=== PATIENT | male | born 1990 | race Caucasian/White ===

== ENCOUNTER 2020-02-11 15:00 | Emergency (ER) | payer OTHER ==
[2020-02-11 15:28] VITALS: BP 118/70; PULSE 85; TEMP 98; BMI 38.4
--- NOTE | 2020-02-11 15:36 | PDOC ---
Attending Attestation - Resident Resident Name: Pascual Isaacs - ED Attending Attestation I have performed the following: I have examined & evaluated the patient, The case was reviewed & discussed with the resident, I agree w/resident's findings & plan, Exceptions are as noted - HPI HPI: 29 yo M presents with laceration to L lateral ankle. He states he sustained the injury while working today, unknown sharp object in a bag. +Mild bleeding. - Physicial Exam PE: GENERAL: Awake, alert, and fully oriented, in no acute distress HEAD: No signs of trauma EXTREMITIES: +2.5cm linear laceration above the L lateral malleolus. Mild oozing blood. Tendon function intact. Remainder of extremities with normal range of motion, no edema. No clubbing or cyanosis. No cords, erythema, or tenderness NEUROLOGICAL: Cranial nerves II through XII grossly intact. Normal speech, normal gait. Motor and sensation intact SKIN: Warm, dry, normal turgor, no rashes. Laceration as above. - Medical Decision Making +Lower leg laceration, will place sutures to repair. Discharge - Discharge Information Problems reviewed: Yes Clinical Impression/Diagnosis: Laceration of ankle without complication Qualifiers: Encounter type: initial encounter Laterality: left Qualified Code(s): S91.012A - Laceration without foreign body, left ankle, initial encounter Condition: Improved Disposition: HOME - Follow up/Referral Referrals: Paulino Kamara [Primary Care Provider] - - Patient Discharge Instructions Patient Printed Discharge Instructions: DI for Laceration Repair Additional Instructions: You were seen today for a linear laceration to your left ankle. You were given Motrin for pain and a tetanus booster vaccine today. Your wound was closed with 1 simple running suture. It will need to be removed by a doctor or nurse after approximately 8-10 days. You may shower but do not submerge the area for the next 8-10 days. You can take over the counter Tylenol (Acetaminophen) and Advil/Motrin (Ibuprofen) as needed for pain. Take as directed on the package insert. Do not exceed the recommended dosage. Follow up with your primary care physician or return to the ED to have the suture removed. Go to the nearest emergency department if your condition worsens, you develop signs of an infection, or you feel like you need additional emergency evaluation. Print Language: WALLISIAN - Post Discharge Activity Work/Back to School Note: Back to Work
--- NOTE | 2020-02-11 15:47 | PDOC ---
History of Present Illness - General Chief Complaint: Laceration Stated Complaint: LEFT ANKLE LACERATION Time Seen by Provider: 02/11/20 15:22 History Source: Patient Exam Limitations: No Limitations - History of Present Illness Initial Comments: 29 y/o male presenting to [place] [facility] complaining of laceration to lateral aspect of the left ankle. Reports cutting his leg while moving a black bag of unknown contents while at work this morning at approx. 8AM. 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 The area bled a small amount. Pt sought emergent evaluation this afternoon at the urging of his boss. Denies numbness, tingling, difficulty walking or flexing the ankle. Past History - Medical History Allergies/Adverse Reactions: Allergies Allergy/AdvReac Type Severity Reaction Status Date / Time No Known Allergies Allergy Verified 02/11/20 15:21 Home Medications: Ambulatory Orders NK [No Known Home Medication] 02/11/20 COPD: No Other medical history: Pt denies past medical history - Psycho-Social/Smoking History Smoking History: Never smoked - Substance Abuse Hx (Audit-C & DAST Scrn) How often the patient has a drink containing alcohol: Never Score: In Men: 4 or > Positive; In Women: 3 or > Positive: 0 Screen Result (Pos requires Nsg. Audit-10AR): Negative In the last yr the pt used illegal drug/Rx for NonMed reason: No Score: Yes response is considered Positive: 0 Screen Result (Positive result requires Nsg. DAST-10): Negative Review of Systems - Review of Systems Able to Perform ROS?: Yes Comments:: 10 point review of systems completed. All systems negative except as noted above. *Physical Exam - Vital Signs Last Vital Signs Temp Pulse Resp BP Pulse Ox 98.0 F 85 15 118/70 97 02/11/20 15:21 02/11/20 15:21 02/11/20 15:21 02/11/20 15:21 02/11/20 15:21 - Physical Exam General Appearance: Yes: Appropriately Dressed. No: Apparent Distress HEENT: positive: Normal Voice Neck: positive: Supple Respiratory/Chest: positive: Other (Speaking in multiword responses without pausing.). negative: Respiratory Distress Cardiovascular: positive: Regular Rate Vascular Pulses: Dorsalis-Pedis (R): 3+, Doralis-Pedis (L): 3+ Extremity: positive: Normal Range of Motion (Normal active ROM of left ankle. Sensation intact.) Integumentary: positive: Other (2.5cm partial thickness linear laceration just superior to the left lateral malleouls. No obvious foreign body. Trace oozing blood. No purulent discharge. ) Neurologic: positive: Fully Oriented, Alert, Normal Mood/Affect, Normal Response Procedures - Additional Procedures Progress: PROCEDURE NOTE: Wound Closure with Sutures PROCEDURE [facility] ASSISTANTS TEACHER: Pascual Isaacs M.D., PGY3 INDICATION: Partial thickness linear laceration to left ankle CONSENT: Verbal consent was obtained from the patient prior to the procedure. Indications, risks, and benefits were explained at length. PROCEDURE SUMMARY: Patient was positioned appropriately. 3 cc lidocaine 1 percent without epinephrine was used as a local anesthetic. Sterile water was used for irrigation. Wound thoroughly irrigated and explored; no foreign bodies were found. Patient was sterile draped with wound exposed. 1 x 4-0-0 nylon sutures were placed in simple running fashion with good wound approximation. Procedure tolerated without complications. Layer closure and hemostasis was achieved. Wound dressed with bacitracin and sterile gauze. Post suture instructions provided. EBL: <5cc. Post procedure care and follow up instructions provided verbally. Pt expressed understanding. Medical Decision Making - Medical Decision Making 29 y/o previously healthy male presenting with partial thickness linear laceration to lateral aspect of left ankle. Physical exam as described above. Wound irrigated. No obvious foreign body. Laceration closed with simple running suture. Given Motrin for pain relief and tetanus booster. No indication for prophylactic antibiotics. Post-procedure care instructions and return precautions provided to the pt. He expressed verbal understanding and agreement with plan to follow up in 8-10 days for suture removal. Case discussed with ED Attending Dr. Eubanks. Pascual Isaacs M.D., PGY3 Emergency Medicine Residency Discharge - Discharge Information Problems reviewed: Yes Clinical Impression/Diagnosis: Laceration of ankle without complication Qualifiers: Encounter type: initial encounter Laterality: left Qualified Code(s): S91.012A - Laceration without foreign body, left ankle, initial encounter Condition: Good Disposition: HOME - Admission No - Follow up/Referral Referrals: Paulino Kamara [Primary Care Provider] - - Patient Discharge Instructions Patient Printed Discharge Instructions: DI for Laceration Repair Additional Instructions: You were seen today for a linear laceration to your left ankle. You were given Motrin for pain and a tetanus booster vaccine today. Your wound was closed with 1 simple running suture. It will need to be removed by a doctor or nurse after approximately 8-10 days. You may shower but do not submerge the area for the next 8-10 days. You can take over the counter Tylenol (Acetaminophen) and Advil/Motrin (Ibuprofen) as needed for pain. Take as directed on the package insert. Do not exceed the recommended dosage. Follow up with your primary care physician or return to the ED to have the suture removed. Go to the nearest emergency department if your condition worsens, you develop signs of an infection, or you feel like you need additional emergency evaluation. Print Language: THAI - Post Discharge Activity Work/Back to School Note: Back to Work
[2020-02-11] MEDS ORDERED: IBUPROFEN 400 MG TABLET (FP) PO ONE ×2 (15:48→15:49)
[2020-02-11] MEDS ORDERED: DIPHTH,PERTUSS(ACELL),TET 0.5 ML DISP.SYRIN IM ONE ×2 (15:48→15:50)
== END 2020-02-11 16:22 | disposition home or self-care (01) ==
LOC: FER 15:00
PROC: 3E0234Z Introduction of Serum, Toxoid and Vaccine into Muscle, Percutaneous Approach (ICD-10-PCS; principal; 2020-02-11)
DX: S91.012A Laceration without foreign body, left ankle, initial encounter (principal)
CPT/HCPCS: 90715; 99284-25

== ENCOUNTER 2020-02-21 13:03 | Emergency (ER) | payer OTHER ==
[2020-02-21 13:07] VITALS: BP 111/74; PULSE 81; TEMP 98.5; BMI 38.4
--- NOTE | 2020-02-21 13:24 | PDOC ---
History of Present Illness - General Chief Complaint: Suture/Staple Removal(Here) Stated Complaint: SUTURE REMOVAL Time Seen by Provider: 02/21/20 13:08 - History of Present Illness Initial Comments: 02/21/20 13:25 29 years old no past medical status post laceration 10 days ago was present for suture removal no fever no chills no redness wound is well-appearing no complaints at this time Past History - Medical History Allergies/Adverse Reactions: Allergies Allergy/AdvReac Type Severity Reaction Status Date / Time No Known Allergies Allergy Verified 02/21/20 13:04 Home Medications: Ambulatory Orders NK [No Known Home Medication] 02/11/20 COPD: No - Psycho-Social/Smoking History Smoking History: Never smoked - Substance Abuse Hx (Audit-C & DAST Scrn) How often the patient has a drink containing alcohol: Monthly or less Number of drinks the patient has on a typical day: 1 or 2 How often the patient has six or more drinks on one occasion: Never Score: In Men: 4 or > Positive; In Women: 3 or > Positive: 1 Screen Result (Pos requires Nsg. Audit-10AR): Negative In the last yr the pt used illegal drug/Rx for NonMed reason: No Score: Yes response is considered Positive: 0 Screen Result (Positive result requires Nsg. DAST-10): Negative Review of Systems - Review of Systems Comments:: 02/21/20 13:25 ROS: A complete review of 10 out of 10 review of systems is taken and is negative apart from what is previously mentioned below and in the HPI. *Physical Exam - Vital Signs Last Vital Signs Temp Pulse Resp BP Pulse Ox 98.5 F 81 17 111/74 98 02/21/20 13:04 02/21/20 13:04 02/21/20 13:04 02/21/20 13:04 02/21/20 13:04 - Physical Exam 02/21/20 13:25 Vitals: Triage Vital signs reviewed General Appearance: No acute distress, well nourished well developed, Skin: Well-healing laceration continue with sutures in place removed with no complications Psych: Normal mood, normal affect Medical Decision Making - Medical Decision Making 02/21/20 13:25 Well-healing laceration no complication suture removed Findings, need for follow-up and strict return instructions discussed with patient. Discharge - Discharge Information Problems reviewed: Yes Clinical Impression/Diagnosis: Visit for suture removal Condition: Stable - Admission No - Follow up/Referral - Patient Discharge Instructions Patient Printed Discharge Instructions: DI for Suture Removal Additional Instructions: Bacitracin twice a day return to ED for any worsening redness or for any concerns. Follow-up with your doctor as scheduled. - Post Discharge Activity
== END 2020-02-21 13:30 ==
LOC: FER 13:03
DX: Z48.02 Encounter for removal of sutures (principal)
CPT/HCPCS: 99281-25